=== PATIENT | female | born 1980 | race Caucasian/White ===

== ENCOUNTER 2017-07-13 16:40 | Emergency (ER) | payer MEDICAID ==
[~2017-07-13] VITALS: Ht 162.6 cm; Wt 81.0 kg
[~2017-07-13 16:40] MED LIST: PRENATAL VIT; SAME MEDS
[2017-07-13 17:02] VITALS: Ht 162.6 cm; Wt 81.0 kg
--- NOTE | 2017-07-13 19:52 | ERD ---
ER Documentation Chief Complaint Chief Complaint abscess on her back that is bleeding HPI 37-year-old female presents emergency department for an abscess/swelling to her mid upper back for fever 4 weeks. She reports bleeding in that site. LMP: Unknown. A2. Denies headache, dizziness, blurred vision, neck pain, throat pain, difficulty swallowing, shoulder pain, chest pain, abdominal pain, nausea, vomiting, constipation, diarrhea, urinary symptoms, or possibility of being , changes in bowel or bladder habits, loss of bowel and bladder control, trauma, injury, falls, recent exposure to any illness , recent antibiotic use in the last 3 months, fever, chills. ROS All systems reviewed and are negative except as per history of present illness. Medications Home Meds Active Scripts Acetaminophen* (Tylophen*) 500 Mg Capsule, 1 CAP PO Q6H Y for PAIN AND OR ELEVATED TEMP, #20 CAP Prov:NELIAILABANNABILAR F 07/13/17 Cephalexin* (Keflex*) 500 Mg Capsule, 500 MG PO QID for 5 Days, CAP Prov:NELIAILABANNABILAR F 07/13/17 Reported Medications [Same Meds] No Conflict Check 03/18/12 [ Vit.] No Conflict Check 03/08/12 Allergies Allergies: Coded Allergies: ibuprofen (Verified Allergy, HIVES, 09/10/12) PMhx/Soc History of Surgery: Yes (C SECTION) Anesthesia Reaction: No Hx Neurological Disorder: No Hx Respiratory Disorders: No Hx Cardiac Disorders: No Hx Psychiatric Problems: No Hx Miscellaneous Medical Probl: No Hx Alcohol Use: No Hx Substance Use: No Hx Tobacco Use: No Physical Exam Vitals Vital Signs Date Time Temp Pulse Resp B/P Pulse Ox O2 Delivery O2 Flow Rate FiO2 07/13/17 20:40 98.8 85 14 137/66 99 Room Air 07/13/17 17:02 99.1 114 18 149/71 100 Physical Exam Const: Well-appearing. Not in acute distress. Head: Atraumatic Eyes: Normal Conjunctiva ENT: Normal External Ears, Nose and Mouth. Neck: Full range of motion..~ No meningismus. Resp: Clear to auscultation bilaterally Cardio: Regular rate and rhythm, no murmurs Abd: Soft, non tender, non distended. Normal bowel sounds Skin: No petechiae or rashes. Mid upper back has bright to ark red, friable polypoid papule measuring approximately .5cm. No active bleeding. No discharge. No induration around it. Back: No midline or flank tenderness Ext: No cyanosis, or edema Neur: Awake and alert Psych: Normal Mood and Affect Results 24 hrs Current Medications Medications (Trade) Dose Ordered Sig/Nikolas Route PRN Reason Start Time Stop Time Status Last Admin Dose Admin Acetaminophen/ Hydrocodone Bitart ([place] (5/325)) 1 tab ONCE ONCE PO 07/13/17 20:00 07/13/17 20:01 DC 07/13/17 19:55 Procedures/MDM I have low suspicion for severe bacterial infection, sepsis, abscess, cellulitis given the physical exam. Final diagnosis: Pyogenic granuloma Prescription: Keflex. Tylenol. Follow-up with PCP in the next 24-48 hours. Come back here in the emergency department for any new symptoms or any worsening of symptoms. All questions and concerns are answered. Patient and family member verbalized understanding and agreed with the plan of care. Hemodynamically stable on discharge. Departure Diagnosis: Primary Impression: Pyogenic granuloma Condition: Stable Additional Instructions: Follow-up with PCP in the next 24-48 hours. Come back here in the emergency department for any new symptoms or any worsening of symptoms. All questions and concerns are answered. Patient and family member verbalized understanding and agreed with the plan of care. DENICE TAPIA Jul 13, 2017 19:52
[2017-07-13] MEDS ORDERED: HYDROCODONE/APAP (5/325) TAB PO ONE (20:00)
[2017-07-13] MEDS ORDERED: ACET500C5 PO (20:21)
[2017-07-13] MEDS ORDERED: CEPH-443 PO (20:21)
[2017-07-13 20:40] VITALS: BP 137/66; PULSE 85; RESP 14; TEMP 98.8
== END 2017-07-13 20:58 | disposition home or self-care (01) ==
LOC: FTE 16:40
DX: L98.0 Pyogenic granuloma (principal)
CPT/HCPCS: Z7502; Z7610; 99283

== ENCOUNTER 2018-03-07 19:38 | Emergency (ER) | END 2018-03-07 22:32 | disposition left against medical advice (07) ==

== ENCOUNTER 2018-12-18 22:02 | Emergency (ER) | payer MEDICAID ==
[~2018-12-18] VITALS: Ht 160 cm; Wt 72.3 kg
[~2018-12-18 22:02] MED LIST changes: +ACET500C5 PO; +CEPH-443 PO
[2018-12-18 22:08] VITALS: Ht 160 cm; Wt 72.3 kg
[2018-12-18] MEDS ORDERED: OXYCODONE/ACETAMINOPHEN (5/325) TAB PO ONE (23:00)
[2018-12-18] MEDS ORDERED: ONDANSETRON (ODT) 4 MG TAB ODT STA (23:00)
--- NOTE | 2018-12-19 00:10 | ERD ---
ER Documentation Chief Complaint Chief Complaint right upper abd pain x 3 weeks. hx of gallstones HPI 38-year-old female presents with complaint of right upper abdominal pain for past 3 weeks. Patient states that she is has a history of gallstones. In addition she also states that she does have some CVA tenderness on the right si de and she also has a history of pyelonephritis. She has had some nausea but no vomiting. States that her pain is currently 9 out of 10. Not taking any treatments. States that the pain radiates to her back. Denies any fevers, chest pain, shortness of breath. ROS All systems reviewed and are negative except as per history of present illness. Medications Home Meds Active Scripts Hydrocodone/Acetaminophen ([place] 5-325 Tablet) 1 Each Tablet, 1 TAB PO Q6H PRN for PAIN, #10 TAB Prov:EDUARDO SILVA 12/19/18 Metronidazole* (Flagyl*) 500 Mg Tablet, 500 MG PO TID for infection for 10 Days, TAB Prov:EDUARDO SILVA 12/19/18 Ciprofloxacin Hcl* (Ciprofloxacin Hcl*) 500 Mg Tablet, 500 MG PO BID for infection for 7 Days, TAB Prov:EDUARDO SILVA 12/19/18 Acetaminophen* (Tylophen*) 500 Mg Capsule, 1 CAP PO Q6H PRN for PAIN AND OR ELEVATED TEMP, #20 CAP Prov:DENICE TAPIA F 07/13/17 Cephalexin* (Keflex*) 500 Mg Capsule, 500 MG PO QID for 5 Days, CAP Prov:PASILANABIL HERRERAAR F 07/13/17 Reported Medications [Same Meds] No Conflict Check 03/18/12 [ Vit.] No Conflict Check 03/08/12 Allergies Allergies: Coded Allergies: ibuprofen (Verified Allergy, HIVES, 09/10/12) PMhx/Soc History of Surgery: Yes (C SECTION) Anesthesia Reaction: No Hx Neurological Disorder: No Hx Respiratory Disorders: No Hx Cardiac Disorders: No Hx Psychiatric Problems: No Hx Miscellaneous Medical Probl: Yes (gallstones) Hx Alcohol Use: No Hx Substance Use: No Hx Tobacco Use: No Smoking Status: Never smoker FmHx Family History: No diabetes, No coronary disease, No other Physical Exam Vitals Vital Signs Date Temp Pulse Resp B/P (MAP) Pulse Ox O2 O2 Flow FiO2 Time Delivery Rate 5/6/19 97.6 95 20 153/70 100 Room Air 03:00 (97) 12/18/18 98.9 100 20 148/87 99 22:08 (107) Physical Exam Const: No acute distress Head: Atraumatic Eyes: Normal Conjunctiva ENT: Normal External Ears, Nose and Mouth. Neck: Full range of motion. No meningismus. Resp: Clear to auscultation bilaterally Cardio: Regular rate and rhythm, no murmurs Abd: Positive Nguyen's. Skin: No petechiae or rashes Back: No midline tenderness. Right-sided CVA tenderness. Ext: No cyanosis, or edema Neur: Awake and alert Psych: Normal Mood and Affect Result Diagram: 12/18/18 2319 12/18/18 2319 Results 24 hrs Laboratory Tests Test 12/18/18 23:19 12/18/18 23:21 White Blood Count 11.3 10^3/ul Red Blood Count 3.91 10^6/ul Hemoglobin 9.7 g/dl Hematocrit 31.2 % Mean Corpuscular Volume 79.8 fl Mean Corpuscular Hemoglobin 24.8 pg Mean Corpuscular Hemoglobin Concent 31.1 g/dl Red Cell Distribution Width 13.4 % Platelet Count 248 10^3/UL Mean Platelet Volume 10.4 fl Immature Granulocytes % 0.400 % Neutrophils % 68.9 % Lymphocytes % 21.5 % Monocytes % 6.8 % Eosinophils % 2.2 % Basophils % 0.2 % Nucleated Red Blood Cells % 0.0 /100WBC Immature Granulocytes # 0.050 10^3/ul Neutrophils # 7.8 10^3/ul Lymphocytes # 2.4 10^3/ul Monocytes # 0.8 10^3/ul Eosinophils # 0.3 10^3/ul Basophils # 0.0 10^3/ul Nucleated Red Blood Cells # 0.0 10^3/ul Urine Color COLORLESS Urine Clarity CLEAR Urine pH 8.0 Urine Specific [place] 1.005 Urine Ketones NEGATIVE mg/dL Urine Nitrite NEGATIVE mg/dL Urine Bilirubin NEGATIVE mg/dL Urine Urobilinogen NEGATIVE mg/dL Urine Leukocyte Esterase NEGATIVE Amanda/ul Urine Hemoglobin NEGATIVE mg/dL Urine Glucose NEGATIVE mg/dL Urine Total Protein NEGATIVE mg/dl Sodium Level 142 mmol/L Potassium Level 4.2 mmol/L Chloride Level 105 mmol/L Carbon Dioxide Level 29 mmol/L Anion Gap 8 Blood Urea Nitrogen 9 mg/dl Creatinine 0.33 mg/dl Est Glomerular Filtrat Rate mL/min > 60 mL/min Glucose Level 99 mg/dl Calcium Level 9.5 mg/dl Total Bilirubin 0.2 mg/dl Direct Bilirubin 0.00 mg/dl Indirect Bilirubin 0.2 mg/dl Aspartate Amino Transf (AST/SGOT) 25 IU/L Alanine Aminotransferase (ALT/SGPT) 18 IU/L Alkaline Phosphatase 137 IU/L Total Protein 7.4 g/dl Albumin 4.1 g/dl Globulin 3.30 g/dl Albumin/Globulin Ratio 1.24 Lipase 77 U/L POC Beta HCG, Qualitative NEGATIVE Current Medications Medications Dose Sig/Nikolas Start Time Status Last (Trade) Ordered Route PRN Stop Time Admin Dose Reason Admin Oxycodone/ 1 tab ONCE ONCE 12/18/18 DC 12/18/18 Acetaminophen PO 23:00 12/18/18 23:34 (Percocet 23:07 (5/ 325)) Ondansetron 8 mg ONCE STAT 12/18/18 DC 12/18/18 HCl (Zofran ODT 23:00 12/18/18 23:34 Odt) 23:07 500 mg ONCE ONCE 12/19/18 DC 12/19/18 Ciprofloxacin PO 02:30 12/19/18 02:52 (Cipro) 02:32 500 mg ONCE ONCE 12/19/18 DC 12/19/18 Metronidazole PO 02:30 12/19/18 02:52 (Flagyl) 02:32 Procedures/MDM DIAGNOSTIC IMAGING REPORT Patient: BRENNEN EDGE : 1980 Age: 38 Sex: F MR #: [id number] DOS: 12/18/18 2300 Ordering MD: EDUARDO SILVA Location: [facility] Room/Bed: PROCEDURE: US aorta. CLINICAL INDICATION: Pain radiating to back TECHNIQUE: Multiple sonographic images of the abdominal aorta was obtained utilizing grayscale and color-flow doppler imaging. The images were reviewed on a PACS workstation. COMPARISON: US ABDOMEN 12/18/2018 FINDINGS: The aorta is normal in caliber with no evidence of abdominal aortic aneurysm. The proximal aorta measures 1.8 cm. The mid aorta measures 1.6 cm. The distal aorta measures 1.4 cm. IMPRESSION: No evidence of abdominal aortic aneurysm. RPTAT: HJES .Carlo Aguilar MD, MD Date Time Electronically viewed and signed by .Carlo Aguilar MD, MD on 12/19/2018 02:21 .S/ CC: EDUARDO SILVA [id number] DIAGNOSTIC IMAGING REPORT Patient: BRENNEN EDGE : 1980 Age: 38 Sex: F MR #: [id number] DOS: 12/18/18 2300 Ordering MD: EDUARDO SILVA Location: [facility] Room/Bed: PROCEDURE: US abdomen limited right upper quadrant. CLINICAL INDICATION: Positive Nguyen's sign and history of gallstones, pain TECHNIQUE: Multiple real-time images were acquired of the patient's right upper quadrant of the abdomen utilizing a high resolution transducer. COMPARISON: None FINDINGS: The gallbladder is contracted which limits evaluation. There may be sludge in the gallbladder. No definite gallstones are seen in the gallbladder. There is appearance of minimal diffuse gallbladder wall thickening which could be due to contracture. The common bile duct measures 3.3 mm in maximal dimension. No free fluid is identified. No abnormality is seen in the pancreas or liver. The visualized inferior vena cava is unremarkable. The right kidney measures 12.1 cm in length and is unremarkable. IMPRESSION: The gallbladder is contracted which limits evaluation. This is nonspecific and could be due to nonfasting state. There may be sludge in the gallbladder. No definite gallstones are seen in the gallbladder. There is appearance of minimal diffuse gallbladder wall thickening which could be due to contracture. Please see above. RPTAT: HJES .Carlo Aguilar MD, MD Date Time Electronically viewed and signed by .Carlo Aguilar MD, MD on 12/19/2018 02:19 .S/ CC: EDUARDO SILVA [id number] MDM: Ultrasound showed possible thickening of gallbladder but was inconclusive. Given given these results in addition to patient's complaint of right upper quadrant pain as well as history of gallstones and slightly elevated white count, patient will be treated for a mild cholecystitis with Flagyl and ciprofloxacin. I have low suspicion for gallbladder rupture, cholangitis, intra-abdominal abscess, or any other emergent condition. Patient advised that gallbladder disease is generally chronic condition needs to be managed on outpatient basis and usually require surgery. Patient discharged with strict ER precautions. Patient advised to follow up with PMD. All questions answered at discharge. Departure Diagnosis: Primary Impression: Cholecystitis Condition: Stable EDUARDO SILVA December 19, 2018 00:10
[2018-12-19] MEDS ORDERED: CIPROFLOXACIN 500 MG TAB PO ONE (02:30)
[2018-12-19] MEDS ORDERED: metroNIDAZOLE 500 MG TAB PO ONE (02:30)
[2018-12-19] MEDS ORDERED: CIPR500T4 PO (02:34)
[2018-12-19] MEDS ORDERED: HYDR-4011 PO (02:34)
[2018-12-19] MEDS ORDERED: METR500T PO (02:34)
[2018-12-19 03:00] VITALS: BP 153/70; PULSE 95; RESP 20
== END 2018-12-19 03:06 | disposition home or self-care (01) ==
LOC: FTE 22:02
DX: K81.9 Cholecystitis, unspecified (principal)
CPT/HCPCS: 76705; 76775; 80053; 81003; 81025; 83690; 85025; Z7502; Z7610

== ENCOUNTER 2019-02-27 15:53 | Emergency (ER) | payer MEDICAID ==
[~2019-02-27] VITALS: Ht 160 cm; Wt 69.4 kg
[~2019-02-27 15:53] MED LIST changes: +CIPR500T4 PO; +HYDR-4011 PO; +METR500T PO
[2019-02-27 16:00] VITALS: BP 144/69; PULSE 102; RESP 17; Ht 160 cm; Wt 69.4 kg
--- NOTE | 2019-02-27 16:47 | ERD ---
ER Documentation Chief Complaint Chief Complaint LEFT 1ST TOE PAIN/SWELLING HPI 38-year-old female, previously healthy, presents the emergency department, complaining of 2 weeks with worsening of pain, edema and erythema of the left great toe. The patient denies fever, no chills, no distal weakness, numbness or tingling. No history of diabetes. The patient has not attempted any medications at this time. ROS All systems reviewed and are negative except as per history of present illness. Medications Home Meds Active Scripts Bacitracin* (Bacitracin Zinc Oint*) 28.35 Gm Oint, 1 APPLIC TOP BID for 7 Days, #1 TUB APPLI TO Prov:DELFINA NAPOLES MD 02/27/19 Acetaminophen* (Tylenol*) 325 Mg Tablet, 2 TAB PO Q6 PRN for PAIN AND OR ELEVATED TEMP, #20 TAB Prov:DELFINA NAPOLES MD 02/27/19 Sulfamethoxazole/Trimethoprim* (Bactrim Ds* Tablet) 1 Each Tablet, 1 TAB PO BID, #14 TAB Prov:DELFINA NAPOLES MD 02/27/19 Cephalexin* (Keflex*) 500 Mg Capsule, 500 MG PO BID for 7 Days, CAP Prov:DELFINA NAPOLES MD 02/27/19 Hydrocodone/Acetaminophen ([place] 5-325 Tablet) 1 Each Tablet, 1 TAB PO Q6H PRN for PAIN, #10 TAB Prov:EDUARDO SILVA 12/19/18 Metronidazole* (Flagyl*) 500 Mg Tablet, 500 MG PO TID for infection for 10 Days, TAB Prov:EDUARDO SILVA 12/19/18 Ciprofloxacin Hcl* (Ciprofloxacin Hcl*) 500 Mg Tablet, 500 MG PO BID for infection for 7 Days, TAB Prov:EDUARDO SILVA 12/19/18 Acetaminophen* (Tylophen*) 500 Mg Capsule, 1 CAP PO Q6H PRN for PAIN AND OR ELEVATED TEMP, #20 CAP Prov:DENICE TAPIA 07/13/17 Cephalexin* (Keflex*) 500 Mg Capsule, 500 MG PO QID for 5 Days, CAP Prov:DENICE TAPIA 07/13/17 Reported Medications [Same Meds] No Conflict Check 03/18/12 [ Vit.] No Conflict Check 03/08/12 Allergies Allergies: Coded Allergies: ibuprofen (Verified Allergy, HIVES, 09/10/12) PMhx/Soc History of Surgery: Yes (C SECTION) Anesthesia Reaction: No Hx Neurological Disorder: No Hx Respiratory Disorders: No Hx Cardiac Disorders: No Hx Psychiatric Problems: No Hx Miscellaneous Medical Probl: Yes (gallstones) Hx Alcohol Use: No Hx Substance Use: No Hx Tobacco Use: No FmHx Family History: No diabetes, No coronary disease Physical Exam Vitals Vital Signs Date Temp Pulse Resp B/P (MAP) Pulse Ox O2 O2 Flow FiO2 Time Delivery Rate 02/27/19 98.7 102 17 144/69 98 16:00 (94) Physical Exam Const: No acute distress Head: Atraumatic Eyes: Normal Conjunctiva ENT: Normal External Ears, Nose and Mouth. Neck: Full range of motion. No meningismus. Resp: Clear to auscultation bilaterally Cardio: Regular rate and rhythm, no murmurs Abd: Soft, non tender, non distended. Normal bowel sounds Skin: No petechiae or rashes Back: No midline or flank tenderness Ext: Left great toe: Lateral nail with erythema, tenderness and malodorous discharge, otherwise, no distal cyanosis, or edema Neur: Awake and alert Psych: Normal Mood and Affect Procedures/MDM Differential diagnoses include paronychia, cellulitis, diabetic ulcer, osteomyelitis. Low suspicion for acute or chronic systemic process. Clinical presentation consistent with ingrown toenail, the patient opted for conservative management with antibiotics at this time. Some side effects of prescribed medications (headache, rash, nausea, vomiting, diarrhea, drowsiness, habituation, bleeding, hypertension, interactions with other medications) were reviewed. If the symptoms get worse return to the Emergency Department immediately. Instructions explained and given directly by me to the patient with acknowledgment and demonstrated understanding. Disclaimer: Inadvertent spelling and grammatical errors are likely due to EHR/dictation software use and do not reflect on the overall quality of patient care. Also, please note that the electronic time recorded on this note does not necessarily reflect the actual time of the patient encounter. Departure Diagnosis: Primary Impression: Ingrowing left great toenail Condition: Stable Additional Instructions: Muchas jennifer por [facility] para mcqueen servicio. Esperamos que en mcqueen visita a la luke de emergencia mcqueen problema medico haya sido solucionado y que se sienta mucho mejor. Para estar seguros que mcqueen mejoria sigue en proceso, le pedimos el favor de hacer ree anabel de seguimiento medico con mcqueen doctor primario en los proximos 2-4 blair. Lleve con usted estos documentos y las medicinas recetadas. Si parris sintomas empeoran, NO SE ESPERE, por favor regrese a luke de emergencia INMEDIATAMENTE. En lala que usted no tenga un mdico de atencin primaria: Llame al mdico o clnica comunitaria de referencia que aparece abajo briana las horas de consultorio para hacer ree anabel para que le vean. CLINICAS: [place] [id number] [phone] [facility] [phone] [facility]. [facility] [phone] [facility]. [facility] [phone] [facility]. [place] [id number] [phone] [facility]. [phone] DELFINA OVERTON MD Feb 27, 2019 16:47
[2019-02-27] MEDS ORDERED: CEPH-443 PO (16:49)
[2019-02-27] MEDS ORDERED: ACET325T33 PO (16:49)
[2019-02-27] MEDS ORDERED: SULF1TAB31 PO (16:49)
[2019-02-27] MEDS ORDERED: BACI28.34 TOP (16:49)
== END 2019-02-27 16:50 | disposition home or self-care (01) ==
LOC: FTE 15:53 → E/R 16:50
DX: L60.0 Ingrowing nail (principal)
CPT/HCPCS: 99283